=== PATIENT | female | born 1965 | race Caucasian/White ===

== ENCOUNTER → 2016-06-15 | Outpatient (CLI) | payer SELFPAY ==
[~2016-06-15] MED LIST: ASPIRIN LO-DOSE81 MG PO; ATIVAN1 MG PO; KLONOPIN1 MG PO; LEVOTHROID (S112 MCG PO; LEVOTHROID (S150 MCG PO; LIPITOR40 MG PO; NITROSTAT0.4 MG SL; NORCO 5-325 MG1 TAB PO; PRAVACHOL80 MG PO; PROVENTIL OR V6.7 GM INH; SOMA350 MG PO; ULTRAM50 MG PO; XANAX1 MG PO; ZYPREXA ZYDI5 MG PO
== END | disposition disaster alternative care site (69) ==
LOC: GRAD 12:36
DX: C34.90 Malignant neoplasm of unspecified part of unspecified bronchus or lung (principal); R51 Headache; Z53.9 Procedure and treatment not carried out, unspecified reason

== ENCOUNTER → 2016-06-20 | Outpatient (CLI) | payer SELFPAY | END | disposition disaster alternative care site (69) | LOC: GRAD 08:29 | DX: C34.90 Malignant neoplasm of unspecified part of unspecified bronchus or lung (principal); R51 Headache ==

== ENCOUNTER → 2016-07-27 | Outpatient (CLI) | payer SELFPAY | END | disposition disaster alternative care site (69) | LOC: GRAD 10:00 | DX: C34.90 Malignant neoplasm of unspecified part of unspecified bronchus or lung (principal); R91.8 Other nonspecific abnormal finding of lung field; Z90.2 Acquired absence of lung [part of] ==

== ENCOUNTER 2016-10-26 18:31 | Emergency (ER) | payer SELFPAY ==
--- NOTE | ~2016-10-26 | ER ---
PATIENT'S NAME: MACK GALDAMEZ [facility] AGE: 50 Y [address] ROOM: [place] [address] LOCATION: [facility] ADMIT DATE: 10/26/2016 ER/Outpatient Report DISCHARGE DATE: 10/26/2016 FAMILY PHYSICIAN: Jacob Jarquin DO ATTENDING PHYSICIAN: Manuel Dooley Admission date and time documented in the medical record. I saw the patient at 1845 hours. CHIEF COMPLAINT: Chest pain, right shoulder and arm pain, right scapular pain. HISTORY OF PRESENT ILLNESS: The patient is a 50-year-old female. The patient had onset of pain about an hour and a half prior to admission to the emergency room. The patient states that her pain felt like she got hit in the chest and shoulder, scapular area with a bat. Along with the right-sided chest pain, right shoulder, scapular pain, right arm pain, she has accompanying shortness of breath. She had some nausea and vomiting. No diaphoresis. No weakness. No lightheadedness, dizziness, syncope, or near syncope. She had no fall or trauma. She does have a history of lung cancer, right lower lobe, and had a lobectomy. She is in remission. She had no chemotherapy or radiation therapy. Apparently, she has a remaining pulmonary nodule that her physicians are watching. No syncope or near syncope. No recent colds, coughs, flus, fever, chills, or sweats. No abdominal pain. No diarrhea, urinary frequency, urgency, dysuria. No joint or muscle swelling, redness, or pain other than the right shoulder, right arm, right scapula. No skin eruptions or rash. No history of neuro changes or psych issues. Does have hypothyroidism, but no diabetes. HOME MEDICATIONS: See attached medication list. ALLERGIES: CODEINE. SOCIAL HISTORY: The patient smokes about a pack of cigarettes per day. Occasional intake of alcohol. SIGNIFICANT PAST MEDICAL HISTORY: Lung cancer, atherosclerotic ischemic heart disease with coronary artery disease, dyslipidemia. OPERATIONS: Right lower lung lobectomy, hysterectomy, appendectomy, right foot surgery, PATIENT'S NAME: MACK GALDAMEZ [facility] AGE: 50 Y [address] ROOM: [place] [address] LOCATION: [facility] ADMIT DATE: 10/26/2016 ER/Outpatient Report DISCHARGE DATE: 10/26/2016 FAMILY PHYSICIAN: Jacob Jarquin DO ATTENDING PHYSICIAN: Manuel Dooley left breast lumpectomy. REVIEW OF SYSTEMS: All systems reviewed by me are negative with the exception of those discussed in the history of present illness. PHYSICAL EXAMINATION: VITAL SIGNS: Temperature 96.9 tympanic, pulse 86, respirations 16, blood pressure 139/58, O2 saturation on room air is 96%. Raul Coma Scale is 15. HEAD: Normocephalic. No abrasion, contusion, laceration, swelling of the scalp or face. EYES: Extraocular muscles intact. PERRL. Sclerae and conjunctivae clear, nonicteric. EARS: Clear TMs bilaterally. NOSE: Clear. THROAT: Clear. Mucous membranes moist. Teeth and jaw intact. NECK: No nuchal rigidity. No thyromegaly or cervical adenopathy. No tenderness. SPINE: Nontender. No deformity. LUNGS: Good air flow. No rales, rhonchi, or wheezes. HEART: Regular. Pulses are palpable. The patient has tenderness over her sternum, right anterior chest wall, right shoulder, right scapula. Reproducible pain to palpation. No deformity of the chest wall or sternum. ABDOMEN: Soft, nondistended, nontender. Good bowel tones. No organomegaly or abnormal mass palpable. No CVA tenderness. PELVIS: Stable, nontender. EXTREMITIES: Moves all 4 extremities. She has pain in the right shoulder, right scapular area. No deformity. No swelling. No redness. Not hot to the touch. No peripheral edema or cyanosis. Pulse intact. Capillary refill intact. NEURO: Cranial nerves intact. No lateralizing sign. The patient is awake, cooperative. Motor and sensory intact. SKIN: Clear. No skin eruptions or rash. VASCULAR: Intact. LABORATORY DATA AND X-RAYS: EKG showed sinus rhythm. No acute ST elevation, ischemic change, or arrhythmia x2 two hours apart. CPK, CK-MB, and troponin were normal x2 two hours apart. Sedimentation rate was normal at 20. White count was 8900, 63 segs, 24 lymphs, 8 monos, 4 eos, 1 baso, hemoglobin was 13 with hematocrit 39.1, platelet count was 237,000. PTT was 27, pro-time was 9.9 with an INR 0.94. CMS was normal. Magnesium was 2.0. CRP was less than 0.29. TSH was 1.44. ProBNP was normal less than 30. D-dimer was normal at 0.042. Procalcitonin was less than 0.05. Lactate was 1.0. Venous pH was 7.35. Two- view chest x-ray showed no acute infiltrate or acute changes. We will review PATIENT'S NAME: MACK GALDAMEZ [facility] AGE: 50 Y [address] ROOM: [place], [place] [address] LOCATION: [facility] ADMIT DATE: 10/26/2016 ER/Outpatient Report DISCHARGE DATE: 10/26/2016 FAMILY PHYSICIAN: Jacob Jarquin DO ATTENDING PHYSICIAN: Manuel Dooley x-ray with radiologist. EMERGENCY DEPARTMENT COURSE: I did give the patient 4 baby aspirin orally here in the emergency department. Gave her morphine 2 mg IV in the emergency room, Toradol 30 mg IV in the emergency room, Solu-Medrol 125 mg IV in the emergency room. IMPRESSION: 1. Right anterior chest pain, radiating to the right shoulder and right scapula, etiology undetermined at this time, however, doubt that it is cardiac or pulmonary. Most likely, this is inflammatory, musculoskeletal etiology. 2. History of right lower lung cancer, status post right lower lung lobectomy, in remission at the present time. 3. History of atherosclerotic ischemic heart disease with coronary artery disease. 4. Dyslipidemia. 5. Tobacco abuse, smoking a pack of cigarettes a day. PLAN: The patient dismissed home. Observation. Activity as tolerated. Continue present home medications and care. Medrol Dosepak take as directed. Toradol 10 mg 1 every 6 hours x12 doses, #12. Warm to hot packs to sore areas intermittently as needed. Follow up with personal physician in 4 or 5 days or sooner if needed. Discussion ensued with the patient concerning my findings and recommendations, she understands. MD ADEOLA JACOB/lindal /[id number] d: 10/27/164 t: 10/27/16 1810, OUTPATIENT REPORT
[2016-10-26 18:59] LABS: BASOPHIL # 0.1 K/uL (0.0-0.2); BASOPHIL % 0.6 %; EOSINOPHIL # 0.4 K/uL (0.0-0.5); EOSINOPHIL % 4.1 %; HEMATOCRIT 39.1 % (33.0-46.0); IMMATURE GRANULOCYTE # 0.1 K/uL (0.0-0.3); IMMATURE GRANULOCYTE % 0.7 %; LYMPHOCYTE # 2.1 K/uL (0.8-4.0); LYMPHOCYTE % 23.6 %; MCH 28.8 pg (27.0-34.0); MCHC 33.2 gm/dL (32.0-36.5); MCV 86.5 fl (83.0-98.0); MONOCYTE # 0.7 K/uL (0.0-1.0); MPV 11.5 fl (9.4-12.4); NEUTROPHIL # (ANC) 5.6 K/uL (1.8-7.8); NRBC % 0 /100WBC (0-0.00); PLATELET COUNT 237 K/uL (150-450); RBC 4.52 M/uL (3.50-5.50); RDW-CV 13.5 % (11.9-14.6); WBC 8.9 K/uL (4.0-11.0)
[2016-10-26 19:01] LABS: BICARBONATE 29.8 mmol/L (18.0-23.0); PCO2 54 mmHg (35-45); PO2 25 mmHg (80-90)
[2016-10-26 19:14] LABS: INR - (THERAPEUTIC) 0.94 (0.92-1.07); PROTIME 9.9 SECONDS (9.8-11.4); PTT 27 SECONDS (25-32)
[2016-10-26 19:21] LABS: ALBUMIN 3.9 gm/dL (3.5-5.0); ALK PHOS 96 IU/L (33-138); ALT 29 IU/L (12-78); ANION GAP 11.7 (10.0-19.0); AST 16 IU/L (10-40); BLOOD UREA NITROGEN 14 mg/dL (6-24); CHLORIDE 107 mMol/L (96-110); CO2 26 mMol/L (22-32); CPK 55 IU/L (21-215); CREATININE 0.9 mg/dL (0.5-1.1); ESTIMATED GFR (MDRD EQUATION) > 60; POTASSIUM 3.7 mMol/L (3.7-5.1); SODIUM 141 mMol/L (135-145); TOTAL BILIRUBIN 0.4 mg/dL (0.0-1.5); TOTAL PROTEIN 7.4 g/dL (6.0-8.4)
[2016-10-26 21:28] LABS: CPK 61 IU/L (21-215)
== END 2016-10-26 21:54 | disposition disaster alternative care site (69) ==
LOC: GMED 18:31
PROVIDERS: Emergency Medicine
DX: R07.89 Other chest pain (principal); E78.5 Hyperlipidemia, unspecified; F17.210 Nicotine dependence, cigarettes, uncomplicated; E03.9 Hypothyroidism, unspecified; I25.10 Atherosclerotic heart disease of native coronary artery without angina pectoris; Z85.118 Personal history of other malignant neoplasm of bronchus and lung; Z88.5 Allergy status to narcotic agent; Z90.49 Acquired absence of other specified parts of digestive tract; Z98.890 Other specified postprocedural states; Z90.710 Acquired absence of both cervix and uterus; Z79.899 Other long term (current) drug therapy; Z79.82 Long term (current) use of aspirin
CPT/HCPCS: J1885; J2270; J2930